=== PATIENT | male | born 1990 | race Caucasian/White ===

== ENCOUNTER → 2024-05-25 | Outpatient (CLI) | payer OTHER ==
--- NOTE | 2024-05-26 10:43 | US ---
EXAMINATION TYPE: US kidneys/renal and bladder DATE OF EXAM: 05/25/2024 COMPARISON: NONE CLINICAL INDICATION: Male, 34 years old with history of R35.0 FREQUENCY OF MICTURITION; increased uri nary freq TECHNIQUE: Grayscale imaging of the bilateral kidneys and urinary bladder: FINDINGS: EXAM MEASUREMENTS: Right Kidney: 10.9x5.0x6.1cm Left Kidney: 12.8x5.3x5.5cm Right Kidney: Complex area seen(mid):2.1x1.6x2.2cm Left Kidney: No hydronephrosis or masses seen Bladder: wnl Bilateral Jets seen: Yes IMPRESSION: Cystic lesion with internal septations upper pole right kidney. CT evaluation is recommended. [facility], , 05/26/2024 10:41 AM
== END | disposition home or self-care (01) ==
LOC: RADUSWWP 15:16
PROVIDERS: ATTEND Internal Medicine
DX: R35.0 Frequency of micturition (principal); Q61.8 Other cystic kidney diseases
CPT/HCPCS: 76770

== ENCOUNTER → 2024-06-01 | Outpatient (CLI) | payer OTHER ==
--- NOTE | 2024-06-01 16:27 | CT ---
EXAMINATION TYPE: CT abdomen wo/w con CT DLP: 590.7 mGycm, Automated exposure control for dose reduction was used. DATE OF EXAM: 06/01/2024 2:34 PM COMPARISON: Renal ultrasound 05/25/2024 CLINICAL INDICATION:Male, 34 years old with history of N28.9 RENAL LESION; Frequent urination x1 true h TECHNIQUE: Multiphase CT of the abdomen following the administration of 100 cc of Isovue 300 IV cont rast material and oral contrast. Noncontrast imaging was obtained before IV contrast administration. Coronal and sagittal reformats were performed. FINDINGS: LOWER CHEST: Unremarkable ABDOMEN LIVER: Mildly enlarged measuring 18.8 cm in CC dimension. No focal lesion. GALLBLADDER AND BILE DUCTS: Unremarkable. PANCREAS: Unremarkable. SPLEEN: Unremarkable. ADRENAL GLANDS: Unremarkable. KIDNEYS AND URETERS: No evidence of hydronephrosis or renal calculus. The kidneys enhance symmetrical ly. Right renal upper pole 2.0 cm nonenhancing cyst. No enhancing septations or thick wall identified . No suspicious enhancing renal lesion. Contrast is demonstrated within both collecting systems on th e delayed phase. STOMACH AND BOWEL: Stomach and duodenum are unremarkable. No focal bowel wall thickening or surroundi ng inflammatory changes. No evidence of bowel obstruction. PERITONEUM: No evidence of pneumoperitoneum or free fluid. VASCULATURE: No evidence of aortic aneurysm. MUSCULOSKELETAL: No acute osseous abnormalities LYMPH NODES: No evidence for lymphadenopathy. SOFT TISSUE/ABDOMINAL WALL: Unremarkable IMPRESSION: 1. Right renal upper pole 2.0 cm cyst without evidence of enhancement (Bosniak 2). Likely benign requ iring no follow-up. 2. Mild hepatomegaly. [facility], , 06/01/2024 4:25 PM
== END | disposition home or self-care (01) ==
LOC: RADCTMAIN 12:58
PROVIDERS: ATTEND Internal Medicine
DX: N28.9 Disorder of kidney and ureter, unspecified (principal); R16.0 Hepatomegaly, not elsewhere classified; N28.1 Cyst of kidney, acquired; R35.0 Frequency of micturition
CPT/HCPCS: 74170; Q9967

== ENCOUNTER → 2024-06-28 | Outpatient (CLI) | payer OTHER ==
--- NOTE | 2024-06-29 18:18 | US ---
EXAMINATION TYPE: US extremity nonvasc mass RT DATE OF EXAM: 06/28/2024 COMPARISON: NONE CLINICAL INDICATION: Male, 34 years old with history of R22.41 LUMP ON RLE; Lump noticed 2 weeks ago by patients massage therapist. Patient denies any other signs, symptoms, or relevant history TECHNIQUE: Grayscale imaging of the calf. FINDINGS: ? lesion on bone at patients AOC = 2.4 x 1.4 x 0.9 cm . IMPRESSION: Palpable area correlates with an area with posterior acoustic shadowing possibly repres enting calcification. Consider further evaluation with MRI imaging. [facility], , 06/29/2024 6:15 PM
== END | disposition home or self-care (01) ==
LOC: RADUSWWP 12:48
PROVIDERS: ATTEND Internal Medicine
DX: R22.41 Localized swelling, mass and lump, right lower limb (principal)

== ENCOUNTER → 2024-08-24 | Outpatient (CLI) | payer OTHER ==
--- NOTE | 2024-08-25 14:34 | MR ---
EXAMINATION TYPE: MR tib fib RT wo/w con DATE OF EXAM: 08/24/2024 7:10 AM COMPARISON: 06/28/2024. CLINICAL INDICATION: Male, 34 years old with history of R22.41 LUMP; PHH, Rt calf muscle lump TECHNIQUE: MR tib fib RT wo/w con; Multiplanar, multisequence technique was utilized in order to study. Contrast: 8 mL Gadobutrol (none if empty) FINDINGS: Palpable marker correlates with bony protuberance off the fibula which has bone signal in a ll sequences. No suspicious masses or abnormal postcontrast enhancement. The bone marrow signal intensity is within normal limits. Soft tissues are grossly unremarkable. No evidence organizing fluid collection or soft tissue mass. Muscle volume is appropriate. After administration of contrast, no abnormal enhancement is seen. IMPRESSION: 1. Bony outgrowth off the fibula possibly representing osteochondroma. Correlate with plain film rad iograph if not already performed. 2. No suspicious masses or organizing fluid collection. [facility], , 08/25/2024 2:32 PM
== END | disposition home or self-care (01) ==
LOC: RADMRIMAIN 06:02
PROVIDERS: ATTEND Internal Medicine
DX: R22.41 Localized swelling, mass and lump, right lower limb (principal)
CPT/HCPCS: 73720; A9585